=== PATIENT | female | born 1980 | race American Indian/Alaskan Native ===

== ENCOUNTER 2019-07-08 07:43 | Emergency (ER) | payer BC ==
--- NOTE | 2019-07-08 08:10 | Emergency Department Report ---
ED General Adult HPI - General Chief complaint: Dizziness Stated complaint: HEAD CLOUDY/DIZZINESS Time Seen by Provider: 07/08/19 08:03 Source: patient Mode of arrival: Ambulatory Limitations: No Limitations - History of Present Illness Initial comments: 39-year-old -Italian female presents to the emergency room reporting her head is "" is cloudy, in the room is spinning". Patient reports that she had similar episodes about 6 months ago and had a negative CAT scan and was prescribed meclizine. Patient states that this episode happened this morning as she was driving to work. Patient detoured and came to the emergency room to be evaluated. Patient did not seem nausea vomiting or fever. Patient does admit to having recent URI symptoms about 1 week ago. Patient denies any past medical history currently takes no medications on a daily basis and has no known drug allergies. -: This morning Location: head Radiation: non-radiation Severity scale (0 -10): 0 Worsens with: movement Associated Symptoms: denies other symptoms - Related Data Previous Rx's Medication Instructions Recorded Last Taken Type Meclizine [Antivert] 25 mg PO TID PRN #30 tablet 07/08/19 Unknown Rx Allergies Allergy/AdvReac Type Severity Reaction Status Date / Time No Known Allergies Allergy Verified 07/08/19 07:48 ED Review of Systems ROS: Stated complaint: HEAD CLOUDY/DIZZINESS Other details as noted in HPI Comment: All other systems reviewed and negative Neurological: vertigo ED Past Medical Hx - Social History Smoking Status: Never Smoker Substance Use Type: Alcohol - Medications Home Medications: Home Medications Medication Instructions Recorded Confirmed Last Taken Type Meclizine [Antivert] 25 mg PO TID PRN #30 tablet 07/08/19 Unknown Rx ED Physical Exam - General Limitations: No Limitations General appearance: alert, in no apparent distress - Head Head exam: Present: atraumatic, normocephalic - Eye Eye exam: Present: normal appearance, PERRL - ENT ENT exam: Present: mucous membranes moist - Expanded Neurological Exam Expanded Cranial nerves: EOM's Intact: Normal, Gag Reflex: Normal, Tongue Deviation: Normal, Nystagmus: Normal, Facial Sensation: Normal, Facial Palsy with Forehead Movement: Normal, Facial Palsy without Forehead Movement: Normal Cerebellar function: Finger to Nose: Normal, Heel to [place]: Normal, Romberg: Normal Upper motor neuron: [place] Neglect: Normal, Pronator Drift: Normal, Babinski Sign: Normal, Sensory Extinction: Normal Sensory exam: Upper Extremity Light Touch: Normal, Upper Extremity Pin Prick: Normal, Upper Extremity Temperature: Normal, UE 2 Point Discrimination: Normal, Lower Extremity Light Touch: Normal, Lower Extremity Pin Prick: Normal, Lower Extremity Temperature: Normal, LE 2 Point Discrimination: Normal Motor strength exam: RUE: 5, LUE: 5, RLE: 5, LLE: 5 Best Eye Response (Mick): (4) open spontaneously Best Motor Response (Mick): (6) obeys commands Best Verbal Response ([place]): (5) oriented Mick Total: 15 - Psychiatric Psychiatric exam: Present: normal affect, normal mood - Skin Skin exam: Present: warm, dry, intact, normal color. Absent: rash ED Course Vital Signs 07/08/19 07:51 Temperature 98.3 F Pulse Rate 72 Respiratory 16 Rate Blood Pressure 146/92 O2 Sat by Pulse 100 Oximetry ED Medical Decision Making - Medical Decision Making 39-year-old -Italian female presents to the emergency room reporting her head is "" is cloudy, in the room is spinning". Patient reports that she had similar episodes about 6 months ago and had a negative CAT scan and was prescribed meclizine. Patient states that this episode happened this morning as she was driving to work. Patient detoured and came to the emergency room to be evaluated. Patient did not seem nausea vomiting or fever. Patient does admit to having recent URI symptoms about 1 week ago. Patient denies any past medical history currently takes no medications on a daily basis and has no known drug allergies. Patient has a completely intact neurological examination. I discussed the patient agreed that she most likely has vertigo. I discussed the patient that I will prescribe her a refill on her meclizine. I discussed the patient that she needs to take as prescribed if her symptoms persist or gets worse she should follow-up with the ear nose and throat provider. I will place one in her discharge summary. Discussed the patient elected to take 2 days off of work to take medications as this can make her sleepy. Patient verbalized understanding. Critical care attestation.: If time is entered above; I have spent that time in minutes in the direct care of this critically ill patient, excluding procedure time. ED Disposition Clinical Impression: Vertigo Disposition: DC-01 TO HOME OR SELFCARE Is pt being admited?: No Does the pt Need Aspirin: No Condition: Stable Instructions: Vertigo (ED) Prescriptions: Meclizine [Antivert] 25 mg PO TID PRN #30 tablet PRN Reason: Vertigo Referrals: PATRICIA CLOUD MD [Staff Physician] - 3-5 Days Forms: Work/School Release Form(ED)
[2019-07-08 08:43] VITALS: BP 140/90
== END 2019-07-08 08:13 | disposition home or self-care (01) ==
LOC: ED 07:43
DX: R42 Dizziness and giddiness (principal)
CPT/HCPCS: 99282